=== PATIENT | male | born 1965 | race Caucasian/White ===

== ENCOUNTER 2023-03-05 16:09 | Outpatient (CLI) | payer BC, SELFPAY | END 2023-03-05 16:10 | disposition home or self-care (01) | LOC: AMB 03-11 16:20 | PROVIDERS: Visit Provider Family Medicine | DX: R11.2 Nausea with vomiting, unspecified (principal); T63.441A Toxic effect of venom of bees, accidental (unintentional), initial encounter; Y92.9 Unspecified place or not applicable | CPT/HCPCS: A0998 ==